=== PATIENT | female | born 1960 | race Caucasian/White ===

== ENCOUNTER 2024-08-19 10:07 | Emergency (ER) | payer BC, OTHER ==
[~2024-08-19] VITALS: Ht 149.9 cm; Wt 73.3 kg
[2024-08-19] MEDS ORDERED: DULOXETINE HCL60 MG PO (10:21)
[2024-08-19] MEDS ORDERED: CELECOXIB100 MG PO (10:21)
[2024-08-19] MEDS ORDERED: GLIPIZIDE5 MG PO (10:21)
[2024-08-19] MEDS ORDERED: LANTUS SOL100 UNIT/1 SUB-Q (10:21)
[2024-08-19] MEDS ORDERED: VARENICLINE1 EACH PO (10:21)
[2024-08-19] MEDS ORDERED: FORMOTEROL20 MCG/2 M IH (10:22)
[2024-08-19] MEDS ORDERED: ATORVASTATIN CA20 MG PO (10:22)
[2024-08-19] MEDS ORDERED: MONTELUKAST SOD10 MG PO (10:22)
[2024-08-19] MEDS ORDERED: KETOROLAC TROMETHAMINE 30 MG/ML VIAL IV ONE (10:30)
[2024-08-19 10:36] LABS: BASOPHILS 0.7 % (0-2); EOSINOPHILS 6.3 % (0-6); HEMOGLOBIN 13.4 g/dL (12.0-18.0); MCHC 33.5 g/dl (30-36); MCV 83.5 fl (81-99); MONOCYTES 12.8 % (0-12); NEUTROPHILS 54.2 % (39-80); PLATELET COUNT 267 K/uL (140-440); RBC 4.79 M/ul (4.3-5.7); RDW 14.5 (10.5-15.0)
[2024-08-19 10:53] LABS: ALBUMIN 3.6 g/dL (3.4-5.0); ALBUMIN/GLOBULIN RATIO 0.92 (1.1-2.4); ANION GAP 11.4 (7-21); BILIRUBIN, TOTAL 0.2 ng/dL (0.2-1.0); BUN/CREATININE RATIO 19.04 (6.0-28.6); CREATININE, SERUM 0.63 mg/dL (0.55-1.02); POTASSIUM 4.4 mmol/L (3.5-5.1); PROTEIN, TOTAL 7.5 g/dL (6.4-8.2)
[2024-08-19 11:25] VITALS: BP 168/76
--- NOTE | 2024-08-22 19:48 | EKG ---
[facility] [address] [facility] [place], [place] [address] Signed Normal sinus rhythm Normal ECG No previous ECGs available Confirmed by Jenniffer Desouza MD ([id number]) on 08/22/2024 7:48:36 PM Electronically Signed By: JENNIFFER DESOUZA MD 08/22/241947 PATIENT NAME: CHERY LEIVA Electrocardiogram DATE OF : 64 PHYSICIAN: JENNIFFER DESOUZA MD REPORT #: [id number] REPORT IS CONFIDENTIAL AND NOT TO BE RELEASED WITHOUT AUTHORIZATION
== END 2024-08-19 11:25 | disposition home or self-care (01) ==
LOC: ED 10:07
PROVIDERS: Emergency Medicine
DX: R07.89 Other chest pain (principal); Z88.2 Allergy status to sulfonamides; Z88.5 Allergy status to narcotic agent; Z79.4 Long term (current) use of insulin; Z79.84 Long term (current) use of oral hypoglycemic drugs; Z79.899 Other long term (current) drug therapy
CPT/HCPCS: 36415; 71045; 80053; 84484; 85025; 93005; 93010; 96374; 99285-25; J1885